=== PATIENT | male | born 1935 | race Caucasian/White ===

== ENCOUNTER 2018-07-12 13:27 | Inpatient (IN) | payer MEDICARE ==
[~2018-07-12] VITALS: Ht 170.2 cm; Wt 74.6 kg
[2018-07-12 14:30] VITALS: BP 110/64
[2018-07-12 16:05] LABS: BASOPHILS # (AUTO) 0.04 x10^3/uL (0-0.1); BASOPHILS % (AUTO) 1 % (0-1); EOSINOPHILS # (AUTO) 0.42 x10^3/uL (0-0.4); EOSINOPHILS % (AUTO) 7 % (1-7); LYMPHOCYTES # (AUTO) 1.33 x10^3/uL (1-3.4); LYMPHOCYTES % (AUTO) 22 % (22-44); MD NO; MEAN CORPUSCULAR HEMOGLOBIN 29.8 pg (27.5-34.5); MEAN CORPUSCULAR HGB CONC 33.1 g/dL (33.2-36.2); MEAN CORPUSCULAR VOLUME 90.1 fL (81-97); MEAN PLATELET VOLUME 8.1 fL (7.4-10.4); MONOCYTES # (AUTO) 0.49 x10^3/uL (0.2-0.8); MONOCYTES % (AUTO) 8 % (2-9); NEUTROPHILS % (AUTO) 62 % (42-75); PLATELET COUNT 258 x10^3/uL (130-400); RED BLOOD COUNT 3.79 x10^6/uL (4.38-5.82)
[2018-07-12 16:15] LABS: ALANINE AMINOTRANSFERASE 18 U/L (12-78); ALBUMIN 2.6 g/dL (3.4-5.0); ANION GAP 5 mmol/L (5-15); CALCIUM 8.6 mg/dL (8.5-10.1); CHLORIDE 112 mmol/L (98-107); CREATININE 0.65 mg/dL (0.7-1.3)
[2018-07-12 16:17] LABS: ALKALINE PHOSPHATASE 85 U/L (45-117); BILIRUBIN,TOTAL 0.3 mg/dL (0.2-1.0)
[2018-07-12] MEDS ORDERED: LABETALOL 5MG/ML, 20ML IVPush PRN (16:30)
[2018-07-12] MEDS ORDERED: ONDANSETRON ODT 4 MG PO PRN (16:30)
[2018-07-12] MEDS ORDERED: ONDANSETRON 2MG/ML, 2ML IVPush PRN (16:30)
[2018-07-12] MEDS ORDERED: SODIUM CHLORIDE 0.45% 1,000 ML IV SCH (16:30)
[2018-07-12] MEDS ORDERED: PLEASE ENTER ALLERGIES MC SCH (17:00)
[2018-07-12] MEDS ORDERED: PLEASE ENTER HEIGHT AND WEIGHT MC SCH (17:00)
[2018-07-12 18:31] VITALS: BP 100/58
[2018-07-12] MEDS: ENOXAPARIN 40 MG/0.4 ML SQ SCH (18:42)
[2018-07-12] MEDS ORDERED: PHARMACOKINETIC CONSULTATION MC ONE (19:00)
[2018-07-12] MEDS ORDERED: PHARMACOKINETIC MONITORING MC PRN (19:00)
[2018-07-12] MEDS ORDERED: VANCOMYCIN PER PHARMACY MC PRN (19:00)
[2018-07-12] MEDS: AMPICILLIN/SULBACTAM 3 GM in SODIUM CHLORIDE 0.9% 100 ML IV SCH (20:30)
[2018-07-12] MEDS: ACETAMINOPHEN 325 MG TABLET PO PRN (21:29)
[2018-07-12] MEDS: VANCOMYCIN 1,300 MG in SODIUM CHLORIDE 0.9% 250 ML IV SCH (21:50)
[2018-07-13 00:55] VITALS: BP 113/67
[2018-07-13] MEDS: AMPICILLIN/SULBACTAM 3 GM in SODIUM CHLORIDE 0.9% 100 ML IV SCH ×3 (04:18→20:02)
[2018-07-13 05:23] LABS: BASOPHILS # (AUTO) 0.04 x10^3/uL (0-0.1); BASOPHILS % (AUTO) 1 % (0-1); EOSINOPHILS # (AUTO) 0.41 x10^3/uL (0-0.4); EOSINOPHILS % (AUTO) 7 % (1-7); LYMPHOCYTES # (AUTO) 1.02 x10^3/uL (1-3.4); LYMPHOCYTES % (AUTO) 18 % (22-44); MD NO; MEAN CORPUSCULAR HEMOGLOBIN 29.1 pg (27.5-34.5); MEAN CORPUSCULAR HGB CONC 32.2 g/dL (33.2-36.2); MEAN CORPUSCULAR VOLUME 90.5 fL (81-97); MEAN PLATELET VOLUME 8.6 fL (7.4-10.4); MONOCYTES # (AUTO) 0.42 x10^3/uL (0.2-0.8); MONOCYTES % (AUTO) 7 % (2-9); NEUTROPHILS # (AUTO) 3.71 x10^3/uL (1.8-6.8); NEUTROPHILS % (AUTO) 66 % (42-75); PLATELET COUNT 243 x10^3/uL (130-400); RED BLOOD COUNT 3.64 x10^6/uL (4.38-5.82); RED CELL DISTRIBUTION WIDTH 16.1 % (9.4-14.8)
[2018-07-13 05:27] LABS: ALBUMIN 2.6 g/dL (3.4-5.0); ANION GAP 5 mmol/L (5-15); CALCIUM 8.1 mg/dL (8.5-10.1); CHLORIDE 112 mmol/L (98-107)
[2018-07-13 05:38] LABS: ALANINE AMINOTRANSFERASE 14 U/L (12-78); ALKALINE PHOSPHATASE 78 U/L (45-117); BILIRUBIN,TOTAL 0.7 mg/dL (0.2-1.0); CREATININE 0.63 mg/dL (0.7-1.3); TOTAL PROTEIN 5.7 g/dL (6.4-8.2)
[2018-07-13 06:43] VITALS: BP 118/70
[2018-07-13 12:11] VITALS: BP 126/67
[2018-07-13] MEDS: ENOXAPARIN 40 MG/0.4 ML SQ SCH (16:02)
[2018-07-13] MEDS: ACETAMINOPHEN 325 MG TABLET PO PRN (17:48)
[2018-07-13 18:33] VITALS: BP 111/61
[2018-07-13] MEDS: VANCOMYCIN 1,300 MG in SODIUM CHLORIDE 0.9% 250 ML IV SCH (22:03)
[2018-07-14 01:56] VITALS: BP 120/74
[2018-07-14] MEDS: AMPICILLIN/SULBACTAM 3 GM in SODIUM CHLORIDE 0.9% 100 ML IV SCH ×3 (04:07→19:58)
[2018-07-14 05:33] LABS: BASOPHILS # (AUTO) 0.05 x10^3/uL (0-0.1); BASOPHILS % (AUTO) 1 % (0-1); EOSINOPHILS # (AUTO) 0.55 x10^3/uL (0-0.4); EOSINOPHILS % (AUTO) 10 % (1-7); LYMPHOCYTES # (AUTO) 1.12 x10^3/uL (1-3.4); LYMPHOCYTES % (AUTO) 20 % (22-44); MD NO; MEAN CORPUSCULAR HEMOGLOBIN 28.7 pg (27.5-34.5); MEAN CORPUSCULAR HGB CONC 31.7 g/dL (33.2-36.2); MEAN CORPUSCULAR VOLUME 90.3 fL (81-97); MEAN PLATELET VOLUME 8.7 fL (7.4-10.4); MONOCYTES # (AUTO) 0.42 x10^3/uL (0.2-0.8); MONOCYTES % (AUTO) 8 % (2-9); NEUTROPHILS # (AUTO) 3.42 x10^3/uL (1.8-6.8); NEUTROPHILS % (AUTO) 62 % (42-75); PLATELET COUNT 262 x10^3/uL (130-400); RED BLOOD COUNT 3.93 x10^6/uL (4.38-5.82); RED CELL DISTRIBUTION WIDTH 16.1 % (9.4-14.8)
[2018-07-14 05:38] LABS: ALBUMIN 2.6 g/dL (3.4-5.0); ANION GAP 4 mmol/L (5-15); CALCIUM 8.5 mg/dL (8.5-10.1); CHLORIDE 113 mmol/L (98-107)
[2018-07-14 06:32] VITALS: BP 141/75
[2018-07-14 12:20] VITALS: BP 115/67
[2018-07-14] MEDS: ENOXAPARIN 40 MG/0.4 ML SQ SCH (15:53)
[2018-07-14] MEDS ORDERED: CYANOCOBALAMIN 1,000 MCG/ML, 1ML IM ONE (16:00)
[2018-07-14] MEDS ORDERED: PROPOFOL 50 ML ONE (17:07)
[2018-07-14] MEDS ORDERED: FENTANYL PF 250 MCG/5ML ONE (17:07)
[2018-07-14] MEDS ORDERED: MORPHINE SULFATE 4 MG/ML, 1ML IVPush PRN (18:30)
[2018-07-14] MEDS ORDERED: DIAZEPAM 5 MG/ML, 2ML IVPush PRN (18:30)
[2018-07-14] MEDS ORDERED: ONDANSETRON 2MG/ML, 2ML IV PRN (18:30)
[2018-07-14] MEDS ORDERED: ONDANSETRON ODT 8 MG PO PRN (18:30)
[2018-07-14] MEDS ORDERED: EPHEDRINE 50 MG/ML, 1ML IVPush PRN (18:30)
[2018-07-14] MEDS ORDERED: LABETALOL 5MG/ML, 20ML IV PRN (18:30)
[2018-07-14] MEDS ORDERED: FENTANYL PF 100 MCG/2ML IV PRN (18:30)
[2018-07-14] MEDS ORDERED: OXYcodone 5 MG/5 ML ORAL.SOL UDC PO PRN (18:30)
[2018-07-14] MEDS ORDERED: ACETAMINOPHEN 650 MG/20.3 ML UDC ONE (19:23)
[2018-07-14] MEDS: ACETAMINOPHEN 325 MG TABLET PO PRN (19:27)
[2018-07-14 19:45] VITALS: BP 126/70
[2018-07-14] MEDS: VANCOMYCIN 1,300 MG in SODIUM CHLORIDE 0.9% 250 ML IV SCH (22:29)
[2018-07-15 00:54] VITALS: BP 106/59
[2018-07-15] MEDS: AMPICILLIN/SULBACTAM 3 GM in SODIUM CHLORIDE 0.9% 100 ML IV SCH ×3 (04:17→19:52)
[2018-07-15 04:28] VITALS: BP 100/55
[2018-07-15 06:01] LABS: BASOPHILS # (AUTO) 0.04 x10^3/uL (0-0.1); BASOPHILS % (AUTO) 1 % (0-1); EOSINOPHILS # (AUTO) 0.54 x10^3/uL (0-0.4); EOSINOPHILS % (AUTO) 9 % (1-7); LYMPHOCYTES # (AUTO) 0.91 x10^3/uL (1-3.4); LYMPHOCYTES % (AUTO) 16 % (22-44); MD NO; MEAN CORPUSCULAR HEMOGLOBIN 29.8 pg (27.5-34.5); MEAN CORPUSCULAR HGB CONC 32.9 g/dL (33.2-36.2); MEAN CORPUSCULAR VOLUME 90.5 fL (81-97); MEAN PLATELET VOLUME 8.6 fL (7.4-10.4); MONOCYTES # (AUTO) 0.42 x10^3/uL (0.2-0.8); MONOCYTES % (AUTO) 7 % (2-9); NEUTROPHILS % (AUTO) 67 % (42-75); PLATELET COUNT 223 x10^3/uL (130-400); RED BLOOD COUNT 3.62 x10^6/uL (4.38-5.82); RED CELL DISTRIBUTION WIDTH 16.6 % (9.4-14.8)
[2018-07-15 06:11] LABS: ALBUMIN 2.4 g/dL (3.4-5.0); ANION GAP 4 mmol/L (5-15); CALCIUM 8.2 mg/dL (8.5-10.1); CHLORIDE 111 mmol/L (98-107); CREATININE 0.58 mg/dL (0.7-1.3)
[2018-07-15 06:38] VITALS: BP 123/77
[2018-07-15] MEDS ORDERED: POTASSIUM CHLORIDE 20 MEQ TAB.ER.PRT PO ONE (09:30)
[2018-07-15] MEDS: ACETAMINOPHEN 325 MG TABLET PO PRN ×2 (10:24→19:55)
[2018-07-15 13:08] VITALS: BP 110/55
[2018-07-15] MEDS: ENOXAPARIN 40 MG/0.4 ML SQ SCH (16:46)
[2018-07-15 19:22] VITALS: BP 134/83
[2018-07-15] MEDS: ATORVASTATIN 40 MG TABLET PO SCH (19:52)
[2018-07-15] MEDS ORDERED: VANCOMYCIN 1,400 MG in SODIUM CHLORIDE 0.9% 250 ML IV SCH (21:00)
[2018-07-16 00:30] VITALS: BP 116/60
[2018-07-16] MEDS: AMPICILLIN/SULBACTAM 3 GM in SODIUM CHLORIDE 0.9% 100 ML IV SCH (04:09)
[2018-07-16 05:22] LABS: ANION GAP 4 mmol/L (5-15); CALCIUM 8.2 mg/dL (8.5-10.1); CHLORIDE 113 mmol/L (98-107); CREATININE 0.58 mg/dL (0.7-1.3)
[2018-07-16] MEDS: ASPIRIN 325 MG TABLET PO SCH (05:40)
[2018-07-16 07:10] VITALS: BP 115/66
[2018-07-16] MEDS ORDERED: VANCOMYCIN PER PHARMACY MC PRN (12:00)
[2018-07-16] MEDS: DOXYCYCLINE 100MG TABLET PO SCH ×2 (12:01→21:17)
[2018-07-16 14:00] VITALS: BP 109/64
[2018-07-16] MEDS: ENOXAPARIN 40 MG/0.4 ML SQ SCH (16:30)
[2018-07-16 18:26] VITALS: BP 119/60
[2018-07-16] MEDS: ACETAMINOPHEN 325 MG TABLET PO PRN (19:05)
[2018-07-16] MEDS: VANCOMYCIN 1,400 MG in SODIUM CHLORIDE 0.9% 250 ML IV SCH (21:17)
[2018-07-16] MEDS: ATORVASTATIN 40 MG TABLET PO SCH (21:17)
[2018-07-17 01:32] VITALS: BP 126/57
[2018-07-17] MEDS: ASPIRIN 325 MG TABLET PO SCH (05:52)
[2018-07-17 07:10] VITALS: BP 149/73
[2018-07-17] MEDS: DOXYCYCLINE 100MG TABLET PO SCH ×2 (09:04→21:45)
[2018-07-17] MEDS: ACETAMINOPHEN 325 MG TABLET PO PRN (13:40)
[2018-07-17 14:00] VITALS: BP 119/56
[2018-07-17] MEDS: ENOXAPARIN 40 MG/0.4 ML SQ SCH (16:30)
[2018-07-17 18:33] VITALS: BP 120/68
[2018-07-17] MEDS: ATORVASTATIN 40 MG TABLET PO SCH (21:44)
[2018-07-17] MEDS: VANCOMYCIN 1,400 MG in SODIUM CHLORIDE 0.9% 250 ML IV SCH (21:45)
[2018-07-18 01:08] VITALS: BP 130/63
[2018-07-18] MEDS: ASPIRIN 325 MG TABLET PO SCH (05:27)
[2018-07-18 07:45] VITALS: BP 109/62
[2018-07-18] MEDS: DOXYCYCLINE 100MG TABLET PO SCH ×2 (10:03→21:22)
[2018-07-18 14:00] VITALS: BP 119/71
[2018-07-18] MEDS ORDERED: VANCOMYCIN 1,400 MG in SODIUM CHLORIDE 0.9% 250 ML IV SCH (15:00)
[2018-07-18] MEDS: VANCOMYCIN 1,400 MG in SODIUM CHLORIDE 0.9% 250 ML IV SCH (16:08)
[2018-07-18] MEDS: ENOXAPARIN 40 MG/0.4 ML SQ SCH (17:12)
[2018-07-18 19:02] VITALS: BP 126/68
[2018-07-18] MEDS: ATORVASTATIN 40 MG TABLET PO SCH (21:22)
[2018-07-18] MEDS: ACETAMINOPHEN 325 MG TABLET PO PRN (21:22)
[2018-07-18] MEDS: LACTATED RINGERS 1,000 ML IV SCH (23:13)
[2018-07-19 03:34] VITALS: BP 113/61
[2018-07-19] MEDS: LACTATED RINGERS 1,000 ML IV SCH (06:02)
[2018-07-19] MEDS: ASPIRIN 325 MG TABLET PO SCH (06:02)
[2018-07-19 06:39] VITALS: BP 130/76
[2018-07-19] MEDS: DOXYCYCLINE 100MG TABLET PO SCH (09:55)
[2018-07-19] MEDS: VANCOMYCIN 1,400 MG in SODIUM CHLORIDE 0.9% 250 ML IV SCH (09:55)
[2018-07-19] MEDS: ACETAMINOPHEN 325 MG TABLET PO PRN (11:55)
[2018-07-19] MEDS ORDERED: ATOR40TA78 PO (13:23)
[2018-07-19] MEDS ORDERED: ASPI325T17 PO (13:23)
[2018-07-19] MEDS ORDERED: DOXY100T PO (13:23)
[2018-07-19] MEDS ORDERED: ACET325T14 PO (13:24)
[2018-07-19 14:27] VITALS: BP 97/61
== END 2018-07-19 16:00 | disposition home health service (06) | DRG 907 ==
LOC: 4NOR 14:02
PROVIDERS: ADMIT Hospitalist; ATTEND Hospitalist
PROC: 0KBT0ZZ Excision of Left Lower Leg Muscle, Open Approach (ICD-10-PCS; principal; 2018-07-14 17:30)
DX: T81.30XA Disruption of wound, unspecified, initial encounter (principal); E43 Unspecified severe protein-calorie malnutrition; T87.44 Infection of amputation stump, left lower extremity; I96 Gangrene, not elsewhere classified; I99.8 Other disorder of circulatory system; E53.8 Deficiency of other specified B group vitamins; Y83.5 Amputation of limb(s) as the cause of abnormal reaction of the patient, or of later complication, without mention of misadventure at the time of the procedure; E87.6 Hypokalemia; D64.9 Anemia, unspecified; Z66 Do not resuscitate; Z90.79 Acquired absence of other genital organ(s); Z85.46 Personal history of malignant neoplasm of prostate; Z85.038 Personal history of other malignant neoplasm of large intestine; Z87.01 Personal history of pneumonia (recurrent); Z82.49 Family history of ischemic heart disease and other diseases of the circulatory system; Z68.25 Body mass index [BMI] 25.0-25.9, adult
CPT/HCPCS: 36415; 80048; 80053; 80202; 82040; 82607; 82962; 83605; 83735; 84100; 84145; 84439; 84443; 85025; 87040; 87070; 87077; 87186; 87205; 93005; C1729; G0378; J0295; J1650; J2704; J3010; J3370; J3420; J7050; J7120